=== PATIENT | male | born 1985 | race African-American/Black ===

== ENCOUNTER 2019-12-08 20:44 | Emergency (ER) | payer SELFPAY | END 2019-12-08 21:45 | disposition home or self-care (01) | LOC: ERS 20:44 | DX: R11.2 Nausea with vomiting, unspecified (principal); R19.7 Diarrhea, unspecified | CPT/HCPCS: 99283 ==

== ENCOUNTER 2021-05-01 08:25 | Emergency (ER) | payer SELFPAY ==
[2021-05-01] MEDS ORDERED: Ondansetron ODT 4 MG TAB ONE (09:08)
[2021-05-01] MEDS ORDERED: Naproxen 500 MG TAB ONE (09:08)
[2021-05-01 15:41] LABS: SARS-CoV-2 PCR by NAA Not Detected (NotDetected)
== END 2021-05-01 09:57 | disposition home or self-care (01) ==
LOC: ERS 08:25
DX: R51.9 Headache, unspecified (principal); R11.10 Vomiting, unspecified; R43.9 Unspecified disturbances of smell and taste; Z20.822 Contact with and (suspected) exposure to COVID-19
CPT/HCPCS: 99283; Q0162; U0003; U0005

== ENCOUNTER 2021-12-29 17:57 | Emergency (ER) | payer SELFPAY | END 2021-12-29 19:05 | disposition home or self-care (01) | LOC: ERS 17:57 | DX: J18.1 Lobar pneumonia, unspecified organism (principal) | CPT/HCPCS: 71045 ==

== ENCOUNTER 2022-02-10 17:50 | Emergency (ER) | payer SELFPAY | END 2022-02-10 18:56 | disposition home or self-care (01) | LOC: ERS 17:50 | DX: G51.0 Bell's palsy (principal) | CPT/HCPCS: 99284 ==

== ENCOUNTER 2022-04-18 07:39 | Emergency (ER) | payer SELFPAY ==
[2022-04-18] MEDS ORDERED: Dexamethasone 10 MG/ML VIAL ONE (09:23)
== END 2022-04-18 09:39 | disposition home or self-care (01) ==
LOC: ERS 07:39
DX: J02.8 Acute pharyngitis due to other specified organisms (principal)
CPT/HCPCS: 87081; 87430; 99283; J1100

== ENCOUNTER 2022-04-20 02:42 | Emergency (ER) | payer SELFPAY ==
[2022-04-20] MEDS ORDERED: Ampicillin/Sulbactam 3 GM in Sodium Chloride 0.9% 100 ML IVPB SCH (05:15)
[2022-04-20] MEDS ORDERED: Dexamethasone 10 MG/ML VIAL ONE (05:16)
[2022-04-20] MEDS ORDERED: Ketorolac Tromethamine 30 MG/ML VIAL ONE (05:16)
[2022-04-20 05:30] LABS: #Basophils 0.1 thou/uL (0.0-0.2); #Eosinphils 0.1 thou/uL (0.0-0.7); #Lymphocytes 2.5 thou/uL (1.20-3.40); #Monocytes 1.2 thou/uL (0.11-0.59); #Neutrophils 3.9 thou/uL (1.40-6.50); %Eosinophils 1.1 % (0.0-10.0); %Lymphocytes 32.5 % (21.0-51.0); %Monocytes 14.7 % (0.0-10.0); %Neutrophils 50.7 % (42.0-75.0); Hemoglobin 14.8 g/dL (14.0-18.0); Mean Corpuscular HGB CONC 33.5 g/dL (32.0-36.0); Mean Corpuscular Volume 86.5 fL (78.0-98.0); Mean Platelet Volume 8.2 fL (7.4-10.4); Platelet Count 218 thou/uL (130-400); RBC Distribution Width 13.8 % (11.5-14.5); Red Blood Cell (RBC) Count 5.11 mill/uL (4.70-6.10); White Blood Cell (WBC) Count 7.8 thou/uL (4.8-10.8)
[2022-04-20 05:55] LABS: ALT (SGPT) 21 U/L (8-55); AST (SGOT) 16 U/L (5-34); Albumin 4.5 g/dL (3.5-5.0); Alkaline Phosphatase 68 U/L (40-110); Anion Gap 15 mmol/L (10-20); BUN (Urea Nitrogen) 17 mg/dL (8.9-20.6); Bilirubin, Total 0.3 mg/dL (0.2-1.2); Calc. Creatinine Clearance 0 mL/min (70-130); Calcium 10.3 mg/dL (7.8-10.44); Carbon Dioxide 27 mmol/L (22-29); Chloride 102 mmol/L (98-107); Estimated GFR 68; Glucose 95 mg/dL (70-105); Potassium 4.2 mmol/L (3.5-5.1); Protein, Total 8.5 g/dL (6.0-8.3); Sodium 140 mmol/L (136-145)
[2022-04-20] MEDS ORDERED: Lidocaine 1% MPF 2 ML VIAL ONE (08:39)
[2022-04-20] MEDS ORDERED: Iopamidol-370 76% 500 ML 1 ML ONE (08:58)
[2022-04-20] MEDS ORDERED: cefTRIAXone\\ROCEPHIN 2 GM VIAL ONE (09:15)
== END 2022-04-20 11:30 | disposition home or self-care (01) ==
LOC: ERS 02:42
DX: J36 Peritonsillar abscess (principal)
CPT/HCPCS: 36415; 70491; 80053; 85025; 87081; 87430; 96365; 96366; 96367; 96375; J0295; J0696; J1100; J1885; J3490; Q9967

== ENCOUNTER 2022-07-14 09:37 | Emergency (ER) | payer SELFPAY ==
[2022-07-14] MEDS ORDERED: predniSONE 20 MG TAB ONE (14:40)
[2022-07-14] MEDS ORDERED: cefTRIAXone\\ROCEPHIN 1 GM VIAL ONE (14:41)
[2022-07-14] MEDS ORDERED: Lidocaine 1% PF 5 ML VIAL ONE (14:42)
== END 2022-07-14 15:00 | disposition home or self-care (01) ==
LOC: ERS 09:37
DX: J36 Peritonsillar abscess (principal)
CPT/HCPCS: 87430; 96372; 99283; J0696; J7512

== ENCOUNTER 2023-08-02 16:14 | Emergency (ER) | payer SELFPAY ==
[2023-08-02 16:50] LABS: Hematocrit 39.6 % (42.0-52.0); Hemoglobin 13.1 g/dL (14.0-18.0); Manual Diff?? YES; Mean Corpuscular HGB CONC 33.1 g/dL (32.0-36.0); Mean Corpuscular Hemoglobin 27.2 pg (27.0-31.0); Mean Corpuscular Volume 82.3 fl (78.0-98.0); Mean Platelet Volume 9.7 fL (7.4-10.4); Platelet Count 312 10x3/uL (130-400); Red Blood Cell (RBC) Count 4.81 mill/uL (4.70-6.10); White Blood Cell (WBC) Count 6.1 10x3/uL (4.8-10.8)
[2023-08-02 16:53] LABS: Delete Auto Diff?? YES
[2023-08-02 17:17] LABS: Band 3 % (5-11); CellaVision Operator ID LAB.KB; Eosinophils 3 % (0-10); Giant Platelets 1.9 % (0-5); Large Platelets 2.9 % (0-5); Lymphocytes 44 % (21-51); Monocytes 7 % (0-10); Neutrophil 28 % (42-75); Platelet Adequacy Comment Platelets Normal; Polychromasia SLIGHT = 2-3 cells HPF (0-2); Reactive Lymphocytes 12 % (0-10); Smudge Cells 8.7 %; Total Cell Count 103
[2023-08-02 17:18] LABS: ALT (SGPT) 12 U/L (8-55); AST (SGOT) 11 U/L (5-34); Albumin 4.3 g/dL (3.5-5.0); Alkaline Phosphatase 77 U/L (40-110); Anion Gap 13 mmol/L (10-20); BUN (Urea Nitrogen) 11 mg/dL (8.9-20.6); Bilirubin, Total 0.3 mg/dL (0.2-1.2); Calc. Creatinine Clearance 0 mL/min (70-130); Calcium 9.8 mg/dL (7.8-10.44); Carbon Dioxide 28 mmol/L (22-29); Chloride 99 mmol/L (98-107); Estimated GFR 72; Globulin 4.7 g/dL (2.4-3.5); Glucose 100 mg/dL (70-105); Potassium 3.7 mmol/L (3.5-5.1); Sodium 136 mmol/L (136-145)
[2023-08-02 17:22] LABS: Troponin I Less than 0.010 ng/mL (< 0.028)
[2023-08-02 18:27] LABS: SARS-CoV-2 NAA Rapid Test Not Detected (NotDetected)
== END 2023-08-02 18:31 | disposition home or self-care (01) ==
LOC: ERS 16:14
DX: R05.9 Cough, unspecified (principal); R04.2 Hemoptysis; R03.0 Elevated blood-pressure reading, without diagnosis of hypertension; R91.8 Other nonspecific abnormal finding of lung field
CPT/HCPCS: 36415; 71045; 80053; 83880; 84484; 85025